=== PATIENT | male | born 2000 | race Caucasian/White ===

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

== ENCOUNTER 2022-01-02 08:39 | Emergency (ER) | payer OTHER ==
[~2022-01-02] VITALS: Ht 170.2 cm; Wt 52.2 kg
[~2022-01-02 08:39] MED LIST: FAMO-90 PO
[2022-01-02 08:54] VITALS: BP 121/74
--- NOTE | 2022-01-02 09:06 | NUR ---
21 Y/O MALE BIB SELF FOR C/O RIGHT HAND PAIN. PER PATIENT "A WEIGHT FELL ON HIS RIGHT HAND A WEEK AGO." PATIENT HAS 7/10 PAIN LEVEL. PATIENT CAN MOVE HAND AND HAS FEELING. SWELLING IS NOTED TO RIGHT TOP OF HAND. MEDICAL HISTORY: DENIES ALLERGY: PENICILLIN
[2022-01-02] MEDS: IBUPROFEN 800 MG TAB PO ONE (10:23)
--- NOTE | 2022-01-02 11:11 | NUR ---
R HAND PLACED IN FARTUN WRAP X 1. + CMS AFTER APPLICATION. PT TOLERATED WRAP.
[2022-01-02] MEDS ORDERED: IBUP-2213 PO (11:17)
--- NOTE | 2022-01-02 11:26 | NUR ---
Patient discharged with v/s stable. Written and verbal after care instructions given and explained. Patient alert, oriented and verbalized understanding of instructions. Ambulatory with steady gait. All questions addressed prior to discharge. ID band removed. Patient advised to follow up with PMD. Rx of ibuprofen (sent) given. Patient educated on indication of medication including possible reaction and side effects. Opportunity to ask questions provided and answered. work note copy and xray given
[2022-01-02 11:27] VITALS: BP 121/74
--- NOTE | 2022-01-02 11:27 | NUR ---
The patient's care was reviewed and supervised by Thais Dickens, RN, RN.
== END 2022-01-02 11:27 | disposition home or self-care (01) ==
LOC: MED 08:39
DX: S60.221A Contusion of right hand, initial encounter (principal); Z88.0 Allergy status to penicillin; Z79.899 Other long term (current) drug therapy; W19.XXXA Unspecified fall, initial encounter; Y93.89 Activity, other specified; Y92.89 Other specified places as the place of occurrence of the external cause; Y99.8 Other external cause status
CPT/HCPCS: 73130; 99283; Q0092

== ENCOUNTER 2022-04-09 08:45 | Emergency (ER) | payer MEDICAID, OTHER ==
[~2022-04-09] VITALS: Ht 170.2 cm; Wt 77.1 kg
[~2022-04-09 08:45] MED LIST changes: +IBUP-2213 PO
[2022-04-09 08:53] VITALS: BP 113/57
--- NOTE | 2022-04-09 08:58 | NUR ---
PT AMB TO BED 5.
--- NOTE | 2022-04-09 09:21 | NUR ---
Dr. Menjivar evaluating patient at bedside.
[2022-04-09] MEDS ORDERED: KETOROLAC 60 MG/2 ML VIAL IM ONE (09:25)
--- NOTE | 2022-04-09 09:29 | NUR ---
Patient was taken to imaging via wheelchair.
--- NOTE | 2022-04-09 09:40 | NUR ---
22 y/o male bib self with c/o abdominal pain x yesterday. Patient has 4/10 pain to abdomen. Patient denies any nausea, vomiting or diarrhea. Patient denies any changes to bowel movements. Patient denies any sick contacts or new foods. Medical History: Marijuana smoking NKDA
[2022-04-09] MEDS ORDERED: TRAM50TA1 PO (09:51)
[2022-04-09 10:10] VITALS: BP 135/54
--- NOTE | 2022-04-09 10:10 | NUR ---
The patient's care was reviewed and supervised by Giovana Florence RN.
--- NOTE | 2022-04-09 10:10 | NUR ---
Patient discharged with v/s stable. Written and verbal after care instructions given. Patient alert, oriented and verbalized understanding of instructions. Ambulatory with steady gait. All questions addressed prior to discharge. ID band removed. Patient advised to follow up with PMD. Rx of Tramadol given. Opportunity to ask questions provided and answered.
== END 2022-04-09 10:10 | disposition home or self-care (01) ==
LOC: MED 08:45
DX: R10.9 Unspecified abdominal pain (principal); Z88.0 Allergy status to penicillin
CPT/HCPCS: 74018; 96372; 99283; J1885

== ENCOUNTER 2022-06-30 09:21 | Emergency (ER) | payer MEDICAID ==
[~2022-06-30] VITALS: Ht 167.6 cm; Wt 68.0 kg
[~2022-06-30 09:21] MED LIST changes: +TRAM-748 PO
[2022-06-30 09:27] VITALS: BP 108/64
--- NOTE | 2022-06-30 10:51 | NUR ---
22 y/o male bib self, c/o hematuria that started today, denies dysuria, abd pain, n/v/d. a&ox4, ambulates with steady gait. denies discharge from penis or any new sexual partners. pmh: denies allergy: penicillin
[2022-06-30 12:24] LABS: APPEARANCE,URINE CLEAR (CLEAR); BILIRUBIN,URINE NEGATIVE (NEGATIVE); BLOOD, URINE 1+ (NEGATIVE); COLOR,URINE YELLOW (YELLOW); LEUKOCYTE ESTERASE ,URINE NEGATIVE (NEGATIVE); NITRITE, URINE NEGATIVE (NEGATIVE); UGLUCOSE NEGATIVE (NEGATIVE)
[2022-06-30 12:54] LABS: OTHER CASTS, URINE None Seen /LPF (None Seen); WBC,URINE 0-5 /HPF (0-5)
--- NOTE | 2022-06-30 13:59 | NUR ---
Patient discharged with v/s stable. Written and verbal after care instructions given and explained. Patient verbalized understanding. Ambulatory with steady gait. All questions addressed prior to discharge. Advised to follow up with PMD.
== END 2022-06-30 13:58 | disposition home or self-care (01) ==
LOC: MED 09:21
DX: R31.9 Hematuria, unspecified (principal)
CPT/HCPCS: 81001; 87491; 99283